=== PATIENT | female | born 1995 | race African-American/Black ===

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

== ENCOUNTER 2017-02-04 13:18 | Emergency (ER) | payer MEDICAID, OTHER ==
[~2017-02-04] VITALS: Ht 170.2 cm; Wt 64.0 kg
[2017-02-04 13:37] VITALS: BP 107/80
== END 2017-02-04 16:48 | disposition left against medical advice (07) ==
LOC: ER 13:18
DX: R05 Cough (principal); J45.909 Unspecified asthma, uncomplicated; G43.909 Migraine, unspecified, not intractable, without status migrainosus; Z88.6 Allergy status to analgesic agent; Z98.890 Other specified postprocedural states
CPT/HCPCS: 87804; 99284

== ENCOUNTER 2017-03-01 23:47 | Emergency (ER) | payer MEDICAID ==
[~2017-03-01] VITALS: Ht 170.2 cm; Wt 66.0 kg
[2017-03-02 02:35] VITALS: BP 115/85
== END 2017-03-02 02:33 | disposition home or self-care (01) ==
LOC: ER 23:47
DX: J06.9 Acute upper respiratory infection, unspecified (principal); J45.909 Unspecified asthma, uncomplicated; Z88.6 Allergy status to analgesic agent
CPT/HCPCS: 99283

== ENCOUNTER 2017-08-21 06:34 | Emergency (ER) | payer OTHER ==
[~2017-08-21] VITALS: Ht 167.6 cm; Wt 64.0 kg
[2017-08-21] MEDS ORDERED: IPRATROPIUM/ALBUTEROL 0.5-3(2.5)MG/3ML NEB HHN ONE (10:30)
[2017-08-21 12:18] VITALS: BP 106/62
== END 2017-08-21 12:23 | disposition home or self-care (01) ==
LOC: ER 08:13
DX: J45.901 Unspecified asthma with (acute) exacerbation (principal); F12.10 Cannabis abuse, uncomplicated; Z91.14 Patient's other noncompliance with medication regimen; Z98.890 Other specified postprocedural states
CPT/HCPCS: 81025; 94640; 99283; J7620

== ENCOUNTER 2017-10-03 14:43 | Emergency (ER) | payer OTHER ==
[~2017-10-03] VITALS: Ht 170.2 cm; Wt 63.0 kg
[2017-10-03 15:24] VITALS: BP 110/71
== END 2017-10-03 15:28 | disposition home or self-care (01) ==
LOC: ER 15:05
DX: J45.901 Unspecified asthma with (acute) exacerbation (principal); G43.909 Migraine, unspecified, not intractable, without status migrainosus
CPT/HCPCS: 99283

== ENCOUNTER 2018-04-14 05:04 | Emergency (ER) | payer OTHER ==
[~2018-04-14] VITALS: Ht 170.2 cm; Wt 60.0 kg
[2018-04-14] MEDS ORDERED: IPRATROPIUM BROMIDE (0.02%) 0.5MG/2.5ML NEB HHN STA (05:50)
[2018-04-14] MEDS ORDERED: PREDNISONE 20MG TABLET PO STA (05:50)
[2018-04-14] MEDS ORDERED: ALBUTEROL (0.083%) 2.5MG/3ML NEB HHN STA (05:50)
[2018-04-14] MEDS ORDERED: ALBUTEROL (0.083%) 2.5MG/3ML NEB HHN ONE (07:30)
[2018-04-14] MEDS ORDERED: MAGNESIUM 2 G PREMIX 50 ML IV ONE (07:30)
[2018-04-14] MEDS ORDERED: IPRATROPIUM BROMIDE (0.02%) 0.5MG/2.5ML NEB HHN ONE (07:30)
[2018-04-14] MEDS ORDERED: SODIUM CHLORIDE 0.9% 100 ML IV ONE (07:30)
[2018-04-14] MEDS ORDERED: TERBUTALINE SULFATE 1MG/ML VIAL SUBCUT ONE (07:30)
[2018-04-14 07:46] LABS: HEMATOCRIT. 41.5 % (36.0-48.0); HEMOGLOBIN. 13.4 g/dL (12.0-16.0); MEAN CORPUSCULAR HEMOGLOBIN 26.4 pg (28.0-32.0); MEAN CORPUSCULAR VOLUME 81.8 fL (81.0-99.0); MEAN PLATELET VOLUME 8.7 fl (7.4-10.4); PLATELET 247 x1000/uL (130-400); RED BLOOD CELL COUNT 5.08 mill/uL (4.2-5.4); RED CELL DISTRIBUTION WIDTH 13.9 % (11.6-14.6)
[2018-04-14 07:48] LABS: CHLORIDE 103 mEq/L (98-107)
[2018-04-14 08:33] LABS: BG BASE EXCESS -0.9 mmol/L (-2.0-2.0); BG BILEVEL POS AIRWAY PRESSURE 15/5; BG CARBOXYHEMOGLOBIN 0.1 % (0.5-1.5); BG DEOXYHEMOGLOBIN 0.9 % (0.0-5.0); BG HCO3 ACT 22.9 mmol/L (22.0-26.0); BG METHEMOGLOBIN 0.1 % (0.0-1.5); BG OXYGEN SATURATION 99.1 % (92.0-98.5); BG OXYHEMOGLOBIN 98.9 % (94.0-97.0); BG PCO2 35.6 mmHg (35.0-45.0); BG PH 7.427 (7.350-7.450); BG PO2 164.9 mmHg (75.0-100.0); BG SAMPLE SITE RIGHT RADIAL; BG TOTAL HEMOGLOBIN 13.2 g/dL (12.0-18.0); BG VENT MODE MASK - BIPAP; BG VENT RATE 16 set
[2018-04-14 08:34] LABS: PLATELET ESTIMATE NORMAL
[2018-04-14 12:55] VITALS: BP 127/69
== END 2018-04-14 13:10 | disposition home or self-care (01) ==
LOC: ER 05:04
DX: J45.901 Unspecified asthma with (acute) exacerbation (principal); R11.10 Vomiting, unspecified; G43.909 Migraine, unspecified, not intractable, without status migrainosus; R50.9 Fever, unspecified; Z88.6 Allergy status to analgesic agent
CPT/HCPCS: 36415; 36600; 71046; 80048; 82375; 82805; 85025; 94640; 94660; 96361; 96365; 99284; J3105; J3475; J7050; J7512; J7611; Z7610

== ENCOUNTER 2018-05-18 01:54 | Inpatient (IN) | payer OTHER ==
[~2018-05-18] VITALS: Ht 167.6 cm; Wt 59.0 kg
[2018-05-18] MEDS ORDERED: ONDANSETRON HCL 4MG/2ML INJ IV STA (02:34)
[2018-05-18] MEDS ORDERED: ALBUTEROL (0.083%) 2.5MG/3ML NEB HHN STA (02:34)
[2018-05-18] MEDS ORDERED: IPRATROPIUM BROMIDE (0.02%) 0.5MG/2.5ML NEB HHN STA (02:34)
[2018-05-18] MEDS ORDERED: MORPHINE SULFATE 4 MG/ML CPJ (NOT FOR IM USE) IV STA (02:34)
[2018-05-18] MEDS ORDERED: KETOROLAC 30MG/ML VIAL IV STA (04:29)
[2018-05-18] MEDS ORDERED: SODIUM CHLORIDE 0.9% 1,000 ML IV ONE (04:29)
[2018-05-18 05:11] LABS: BG BASE EXCESS -1.8 mmol/L (-2.0-2.0); BG CARBOXYHEMOGLOBIN 0.3 % (0.5-1.5); BG DEOXYHEMOGLOBIN 4.9 % (0.0-5.0); BG FRACTION INSPIRED OXYGEN 40; BG HCO3 ACT 22.1 mmol/L (22.0-26.0); BG METHEMOGLOBIN 0.8 % (0.0-1.5); BG PCO2 34.5 mmHg (35.0-45.0); BG PH 7.424 (7.350-7.450); BG PO2 75.7 mmHg (75.0-100.0); BG SAMPLE SITE LEFT RADIAL; BG TOTAL HEMOGLOBIN 11.1 g/dL (12.0-18.0); BG VENT MODE MASK - SIMPLE
[2018-05-18 05:17] LABS: CHLORIDE 106 mEq/L (98-107); HEMATOCRIT. 35.7 % (36.0-48.0); HEMOGLOBIN. 11.4 g/dL (12.0-16.0); MEAN CORPUSCULAR HEMOGLOBIN 25.9 pg (28.0-32.0); MEAN CORPUSCULAR VOLUME 81.3 fL (81.0-99.0); MEAN PLATELET VOLUME 7.4 fl (7.4-10.4); PLATELET 352 x1000/uL (130-400); RED BLOOD CELL COUNT 4.39 mill/uL (4.2-5.4); RED CELL DISTRIBUTION WIDTH 14.2 % (11.6-14.6)
[2018-05-18 06:43] LABS: PLATELET ESTIMATE NORMAL
[2018-05-18] MEDS ORDERED: LORAZEPAM 2MG/ML CPJ IV ONE (07:00)
[2018-05-18] MEDS ORDERED: ACETAMINOPHEN 325MG TABLET PO PRN (08:30)
[2018-05-18] MEDS ORDERED: ONDANSETRON HCL 4MG/2ML INJ IV PRN (08:30)
[2018-05-18] MEDS ORDERED: METHYLPREDNISOLONE SOD SUCC 40 MG/ML VIAL IV NR (09:30)
[2018-05-18] MEDS ORDERED: IOHEXOL-350 100 ML BOTTLE ONE (09:30)
[2018-05-18] MEDS ORDERED: LEVOFLOXACIN 750MG PREMIX 150 ML IV SCH (10:45)
[2018-05-18] MEDS ORDERED: IPRATROPIUM BROMIDE (0.02%) 0.5MG/2.5ML NEB ONE ×2 (13:06→17:16)
[2018-05-18] MEDS: IPRATROPIUM BROMIDE (0.02%) 0.5MG/2.5ML NEB HHN SCH ×2 (14:00→17:00)
[2018-05-18] MEDS: METHYLPREDNISOLONE SOD SUCC 40 MG/ML VIAL IV SCH (18:04)
[2018-05-18] MEDS: ENOXAPARIN 40MG/0.4ML SYR SUBCUT SCH (18:04)
[2018-05-18] MEDS: MONTELUKAST SODIUM 10MG TABLET PO SCH (18:04)
[2018-05-18 18:17] VITALS: BP 106/67
[2018-05-18] MEDS ORDERED: HYDROCODONE/ACETAMINOPHEN 5/325MG TABLET PO PRN (18:49)
[2018-05-18 20:00] VITALS: BP 105/65
[2018-05-18] MEDS: MORPHINE SULFATE 4 MG/ML CPJ (NOT FOR IM USE) IV PRN (20:05)
[2018-05-18] MEDS ORDERED: ALBUTEROL (0.5%) 2.5MG/0.5ML NEB HHN PRN (20:15)
[2018-05-18] MEDS: ALBUTEROL (0.083%) 2.5MG/3ML NEB HHN SCH (20:31)
[2018-05-18 22:12] LABS: CLARITY URINE CLEAR (CLEAR); COLOR URINE YELLOW (YELLOW); KETONES URINE NEGATIVE (NEGATIVE); LEUKOCYTE ESTERASE URINE NEGATIVE (NEGATIVE); NITRITE URINE NEGATIVE (NEGATIVE); OCCULT BLOOD URINE NEGATIVE (NEGATIVE); PH URINE 8.5 (4.5-8.0); PROTEIN URINE NEGATIVE (NEGATIVE); SPECIFIC GRAVITY URINE 1.007 (1.005-1.030); UROBILINOGEN URINE 0.2 E.U./dL (0.2-1.0)
[2018-05-18 22:22] LABS: *AMPHETAMINES SCREEN URINE NEGATIVE (NEGATIVE); *BARBITURATES SCREEN URINE NEGATIVE (NEGATIVE); PHENCYCLIDINE URINE SCREEN NEGATIVE (NEGATIVE)
[2018-05-18 22:23] LABS: *BENZODIAZEPINES SCREEN URINE NEGATIVE (NEGATIVE); *COCAINE SCREEN URINE NEGATIVE (NEGATIVE); METHADONE URINE SCREEN NEGATIVE (NEGATIVE)
[2018-05-18 22:25] LABS: CANNABINOID URINE SCREEN PRESUMTIVE POSITIVE (NEGATIVE); OPIATES URINE SCREEN PRESUMTIVE POSITIVE (NEGATIVE)
[2018-05-19] VITALS: BP 101/71
[2018-05-19] MEDS: ALBUTEROL (0.083%) 2.5MG/3ML NEB HHN SCH ×5 (00:45→20:09)
[2018-05-19] MEDS: METHYLPREDNISOLONE SOD SUCC 40 MG/ML VIAL IV SCH ×3 (02:14→17:00)
[2018-05-19 04:00] VITALS: BP 101/68
[2018-05-19 08:00] VITALS: BP 100/70
[2018-05-19] MEDS: GUAIFENESIN-DM 200MG-20MG/10ML UDC PO PRN ×2 (08:55→13:30)
[2018-05-19] MEDS: LEVOFLOXACIN 750MG PREMIX 150 ML IV SCH (10:14)
[2018-05-19 10:45] LABS: BASOPHILS % 0.1 % (0.0-2.0); HEMATOCRIT. 35.1 % (36.0-48.0); HEMOGLOBIN. 11.2 g/dL (12.0-16.0); LYMPHOCYTES % 8.8 % (20.0-50.0); MEAN CORPUSCULAR HEMOGLOBIN 25.7 pg (28.0-32.0); MEAN CORPUSCULAR VOLUME 80.3 fL (81.0-99.0); MONOCYTES % 2.2 % (2.0-8.0); NEUTROPHILS % 88.9 % (40.0-76.0); PLATELET 354 x1000/uL (130-400); RED BLOOD CELL COUNT 4.37 mill/uL (4.2-5.4); RED CELL DISTRIBUTION WIDTH 14.4 % (11.6-14.6)
[2018-05-19 11:13] LABS: CHLORIDE 100 mEq/L (98-107)
[2018-05-19 12:00] VITALS: BP 93/55
[2018-05-19 16:00] VITALS: BP 113/59
[2018-05-19] MEDS: MONTELUKAST SODIUM 10MG TABLET PO SCH (17:00)
[2018-05-19] MEDS: ENOXAPARIN 40MG/0.4ML SYR SUBCUT SCH (17:00)
[2018-05-19 20:00] VITALS: BP 111/69
[2018-05-19] MEDS: GUAIFENESIN 600MG ER TABLET PO SCH (20:17)
[2018-05-19] MEDS: MORPHINE SULFATE 4 MG/ML CPJ (NOT FOR IM USE) IV PRN (20:31)
[2018-05-20] VITALS: BP 108/67
[2018-05-20] MEDS: ALBUTEROL (0.083%) 2.5MG/3ML NEB HHN SCH ×7 (00:13→20:13)
[2018-05-20] MEDS: METHYLPREDNISOLONE SOD SUCC 40 MG/ML VIAL IV SCH ×3 (02:15→17:51)
[2018-05-20] MEDS: GUAIFENESIN-DM 200MG-20MG/10ML UDC PO PRN ×3 (02:20→20:55)
[2018-05-20 04:00] VITALS: BP 103/66
[2018-05-20 08:00] VITALS: BP 108/74
[2018-05-20] MEDS: GUAIFENESIN 600MG ER TABLET PO SCH ×2 (09:29→20:54)
[2018-05-20] MEDS: LORATADINE 10MG TABLET PO SCH (09:32)
[2018-05-20] MEDS: FAMOTIDINE 20MG TABLET PO SCH ×2 (09:32→20:53)
[2018-05-20 12:00] VITALS: BP 90/62
[2018-05-20] MEDS: LEVOFLOXACIN 750MG PREMIX 150 ML IV SCH (13:56)
[2018-05-20] MEDS ORDERED: GUAIFENESIN 200MG/10ML SUGAR FREE UDC PO PRN (14:15)
[2018-05-20 16:00] VITALS: BP 110/71
[2018-05-20] MEDS: MONTELUKAST SODIUM 10MG TABLET PO SCH (17:50)
[2018-05-20] MEDS: ENOXAPARIN 40MG/0.4ML SYR SUBCUT SCH ×2 (17:51→17:58)
[2018-05-21] VITALS: BP 115/77
[2018-05-21] MEDS: ALBUTEROL (0.083%) 2.5MG/3ML NEB HHN SCH ×4 (00:39→11:04)
[2018-05-21] MEDS: METHYLPREDNISOLONE SOD SUCC 40 MG/ML VIAL IV SCH ×2 (01:05→08:54)
[2018-05-21 04:00] VITALS: BP 99/59
[2018-05-21] MEDS: GUAIFENESIN-DM 200MG-20MG/10ML UDC PO PRN (05:54)
[2018-05-21 08:00] VITALS: BP 110/75
[2018-05-21] MEDS: LORATADINE 10MG TABLET PO SCH (08:54)
[2018-05-21] MEDS: FAMOTIDINE 20MG TABLET PO SCH (08:54)
[2018-05-21] MEDS: GUAIFENESIN 600MG ER TABLET PO SCH (08:55)
[2018-05-21 11:34] VITALS: BP 103/70
[2018-05-21] MEDS: LEVOFLOXACIN 750MG PREMIX 150 ML IV SCH (12:39)
[2018-05-21 12:57] VITALS: BP 103/70
== END 2018-05-21 14:01 | disposition home or self-care (01) | DRG 720 ==
LOC: ER 01:54 → 8WST 05:36 → EDBEDREQSVC 08:32 → ENRESERV 16:32
PROVIDERS: ADMIT Internal Medicine; ATTEND Internal Medicine
PROC: 5A09357 Assistance with Respiratory Ventilation, Less than 24 Consecutive Hours, Continuous Positive Airway Pressure (ICD-10-PCS; principal; 2018-05-18)
DX: A41.9 Sepsis, unspecified organism (principal); J96.01 Acute respiratory failure with hypoxia; J18.9 Pneumonia, unspecified organism; J45.41 Moderate persistent asthma with (acute) exacerbation; F11.10 Opioid abuse, uncomplicated; F12.10 Cannabis abuse, uncomplicated; D64.9 Anemia, unspecified; G43.909 Migraine, unspecified, not intractable, without status migrainosus; J20.9 Acute bronchitis, unspecified; F17.200 Nicotine dependence, unspecified, uncomplicated; Z77.120 Contact with and (suspected) exposure to mold (toxic); Z87.09 Personal history of other diseases of the respiratory system; Z88.8 Allergy status to other drugs, medicaments and biological substances; Z79.899 Other long term (current) drug therapy
CPT/HCPCS: 36415; 36600; 71045; 71275; 80048; 80305; 82375; 82805; 84484; 93005; 94640; 94660; 96374; 99285; J1650; J1885; J1956; J2060; J2270; J2405; J2920; J7030; J7040; J7611; Q9967

== ENCOUNTER 2018-09-21 01:08 | Emergency (ER) | payer OTHER ==
[~2018-09-21] VITALS: Ht 170.2 cm; Wt 63.0 kg
[2018-09-21 01:09] VITALS: BP 104/71
[2018-09-21] MEDS ORDERED: DIPHENHYDRAMINE 25MG CAPSULE PO ONE (02:00)
== END 2018-09-21 04:26 | disposition home or self-care (01) ==
LOC: ER 01:08
DX: T78.40XA Allergy, unspecified, initial encounter (principal); X58.XXXA Exposure to other specified factors, initial encounter; O26.892 Other specified pregnancy related conditions, second trimester; J45.909 Unspecified asthma, uncomplicated; Z3A.14 14 weeks gestation of pregnancy; Z88.6 Allergy status to analgesic agent
CPT/HCPCS: 76805; 99284; Q0163

== ENCOUNTER 2018-12-17 16:57 | Observation (INO) | payer MEDICAID, OTHER ==
[~2018-12-17] VITALS: Ht 167.6 cm; Wt 66.2 kg
[2018-12-17 17:52] LABS: CLARITY URINE TURBID (CLEAR); COLOR URINE YELLOW (YELLOW); KETONES URINE NEGATIVE (NEGATIVE); LEUKOCYTE ESTERASE URINE 2+ (NEGATIVE); NITRITE URINE NEGATIVE (NEGATIVE); OCCULT BLOOD URINE 2+ (NEGATIVE); PH URINE 8.5 (4.5-8.0); PROTEIN URINE NEGATIVE (NEGATIVE); SPECIFIC GRAVITY URINE 1.017 (1.005-1.030)
[2018-12-17] MEDS ORDERED: NITR-87 PO (19:06)
[2018-12-17] MEDS ORDERED: NITR-87 MT (19:06)
== END 2018-12-17 19:15 | disposition home or self-care (01) ==
LOC: ER 16:57 → OB TRIAGE 17:15
PROVIDERS: ADMIT Obstetrics & Gynecology; ATTEND Obstetrics & Gynecology
DX: O26.852 Spotting complicating pregnancy, second trimester (principal); Z3A.26 26 weeks gestation of pregnancy
CPT/HCPCS: 76805; 76817; 81003; 99281; G0378

== ENCOUNTER 2018-12-24 15:51 | Observation (INO) | payer MEDICAID, OTHER ==
[~2018-12-24] VITALS: Ht 170.2 cm; Wt 66.2 kg
[~2018-12-24 15:51] MED LIST changes: +NITR-87 MT; +NITR-87 PO
[2018-12-24] MEDS ORDERED: AZIT500T3 MT (18:25)
[2018-12-24] MEDS ORDERED: CODE10LI MT (18:25)
== END 2018-12-24 18:45 | disposition home or self-care (01) ==
LOC: ER 15:51 → 8 EST LDRP 16:09 → INTOOBSV 16:09
PROVIDERS: ADMIT Obstetrics & Gynecology; ATTEND Obstetrics & Gynecology
DX: O26.892 Other specified pregnancy related conditions, second trimester (principal); R50.9 Fever, unspecified; R05 Cough; J00 Acute nasopharyngitis [common cold]; Z3A.27 27 weeks gestation of pregnancy
CPT/HCPCS: 87804; 99281; G0378; 99285

== ENCOUNTER 2018-12-25 15:15 | Emergency (ER) | payer OTHER ==
[~2018-12-25] VITALS: Ht 170.2 cm; Wt 66.0 kg
[~2018-12-25 15:15] MED LIST changes: +AZIT500T3 MT
[2018-12-25] MEDS ORDERED: ALBUTEROL (0.083%) 2.5MG/3ML NEB HHN ONE (17:30)
[2018-12-25] MEDS ORDERED: IPRATROPIUM BROMIDE (0.02%) 0.5MG/2.5ML NEB HHN STA (18:21)
[2018-12-25] MEDS ORDERED: PREDNISONE 20MG TABLET PO STA (18:21)
[2018-12-25 18:34] VITALS: BP 101/61
[2018-12-25] MEDS: ALBUTEROL (0.083%) 2.5MG/3ML NEB HHN SCH ×3 (18:48→19:30)
== END 2018-12-25 20:21 | disposition home or self-care (01) ==
LOC: ER 15:15
DX: J45.901 Unspecified asthma with (acute) exacerbation (principal); Z88.6 Allergy status to analgesic agent
CPT/HCPCS: 94640; 99285; J7512; J7611; Z7610

== ENCOUNTER 2019-02-12 17:50 | Observation (INO) | payer OTHER ==
[~2019-02-12] VITALS: Ht 165.1 cm; Wt 82.6 kg
[2019-02-12] MEDS ORDERED: PREN1TAB78 MT (18:31)
== END 2019-02-12 20:30 | disposition home or self-care (01) ==
LOC: 8 EST LDRP 17:50
PROVIDERS: ADMIT Obstetrics & Gynecology; ATTEND Obstetrics & Gynecology
DX: O36.8130 Decreased fetal movements, third trimester, not applicable or unspecified (principal); Z3A.35 35 weeks gestation of pregnancy
CPT/HCPCS: 76805; 76818; 99281; G0378